=== PATIENT | male | born 1970 | race Caucasian/White ===

== ENCOUNTER 2020-06-09 11:53 | Observation (INO) | payer BC ==
[2020-06-09] MEDS ORDERED: METOCLOPRAMIDE 5 MG/ML 2 ML VIAL IVP STA (12:30)
[2020-06-09] MEDS ORDERED: SODIUM CHLORIDE 0.9% 500 ML 500 ML IV ONE (12:30)
[2020-06-09] MEDS ORDERED: MORPHINE SULFATE 4 MG/ML SYRINGE IVP STA (12:30)
--- NOTE | 2020-06-09 12:47 | ED ---
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 Patient has chief complaint of chest pain as well as headache. The symptoms have been ongoing for the past 3 weeks. He states he is also had nausea without significant vomiting. No known history of coronary artery disease. He has a history of hypertension which is currently being managed by cardiology. Denies fever or chills. Denies abdominal pain. Denies limb numbn ess or weakness. - Related Data Allergies Allergy/AdvReac Type Severity Reaction Status Date / Time hydromorphone [From Dilaudid] Allergy urinary Verified 06/09/20 12:03 retention Review of Systems ROS Statement: Those systems with pertinent positive or pertinent negative responses have been documented in the HPI. ROS Other: All systems not noted in ROS Statement are negative. Past Medical History Past Medical History: Diabetes Mellitus, Hyperlipidemia, Hypertension History of Any Multi-Drug Resistant Organisms: None Reported Past Surgical History: Cholecystectomy, Orthopedic Surgery Additional Past Surgical History / Comment(s): gigi shoulder, neck c345, rt hip and knee surgery Past Psychological History: No Psychological Hx Reported Smoking Status: Current every day smoker Past Alcohol Use History: None Reported Past Drug Use History: None Reported General Exam Limitations: no limitations General appearance: alert, in no apparent distress Head exam: Present: atraumatic, normocephalic Eye exam: Present: normal appearance, PERRL ENT exam: Present: normal exam Neck exam: Present: normal inspection. Absent: tenderness, meningismus Respiratory exam: Present: normal lung sounds bilaterally. Absent: respiratory distress, wheezes Cardiovascular Exam: Present: regular rate, normal rhythm GI/Abdominal exam: Present: soft. Absent: distended, tenderness, guarding Extremities exam: Present: normal inspection, normal capillary refill. Absent: pedal edema, calf tenderness Neurological exam: Present: alert, oriented X3, CN II-XII intact. Absent: motor sensory deficit Psychiatric exam: Present: normal affect, normal mood Skin exam: Present: warm, dry, intact. Absent: cyanosis, diaphoretic Course Vital Signs 06/09/20 06/09/2006/09/20 12:00 12:10 12:20 Temperature 99.1 F Pulse Rate 94 89 Pulse Rate [ Ladle Liner ] Respiratory 20 20 Rate Blood Pressure 151/83 133/94 O2 Sat by Pulse 98 96 95 Oximetry 06/09/20 06/09/20 06/09/20 12:27 12:30 13:00 Temperature Pulse Rate 82 Pulse Rate [ 89 Ladle Liner ] Respiratory 18 Rate Blood Pressure 133/94 133/94 O2 Sat by Pulse 96 Oximetry 06/09/20 06/09/20 13:30 14:00 Temperature Pulse Rate 80 80 Pulse Rate [ Ladle Liner ] Respiratory 15 20 Rate Blood Pressure 125/84 139/89 O2 Sat by Pulse 97 96 Oximetry EKG Findings - EKG Comments: EKG Findings:: EKG: Normal sinus rhythm, nonspecific T-wave abnormality, no ST segment elevation, T-wave inversion in the lateral precordial leads, rate of 88, IA interval 140, QRS duration 86, QTC 438 Medical Decision Making - Medical Decision Making 50-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 No known history of coronary artery disease. EKG sinus rhythm without ST segment elevation. Chest x-ray is negative for acute cardiopulmonary disease. Patient has mild leukocytosis, he has electrolyte abnormality of hypomania 5. His initial troponin is negative. I did perform head CT as the patient has been having ongoing headache for the past 3 weeks as well. This is negative for intracranial hemorrhage or mass effect. Patient reevaluated, symptoms have improved. He will be kept in observation for serial cardiac enzymes, telemetry, cardiology consultation. Case is discussed with Dr. Sierra who will admit. - Lab Data Result diagrams: 06/09/20 12:20 06/09/20 12:20 Lab Results 06/09/20 06/09/20 06/09/20 Range/Units 12:20 12: 12:20 WBC 10.7 H (3.8-10.6) k/uL RBC 4.71 (4.30-5.90) m/uL Hgb 14.0 (13.0-17.5) gm/dL Hct 41.5 (39.0-53.0) % MCV 88.3 (80.0-100.0) fL MCH 29.7 (25.0-35.0) pg MCHC 33.7 (31.0-37.0) g/dL RDW 13.6 (11.5-15.5) % Plt Count 250 (150-450) k/uL Neutrophils % 59 % Lymphocytes % 31 % Monocytes % 6 % Eosinophils % 2 % Basophils % 1 % Neutrophils # 6.3 (1.3-7.7) k/uL Lymphocytes # 3.3 (1.0-4.8) k/uL Monocytes # 0.7 (0-1.0) k/uL Eosinophils # 0.2 (0-0.7) k/uL Basophils # 0.1 (0-0.2) k/uL PT 9.7 (9.0-12.0) sec INR 0.9 (<1.2) APTT 25.1 (22.0-30.0) sec Sodium 136 L (137-145) mmol/L Potassium 4.3 (3.5-5.1) mmol/L Chloride 104 (98-107) mmol/L Carbon Dioxide 21 L (22-30) mmol/L Anion Gap 11 mmol/L BUN 8 L (9-20) mg/dL Creatinine 0.80 (0.66-1.25) mg/dL Est GFR (CKD-EPI)AfAm >90 (>60 ml/min/1.73 sqM) Est GFR (CKD-EPI)NonAf >90 (>60 ml/min/1.73 sqM) Glucose 168 H (74-99) mg/dL Calcium 9.2 (8.4-10.2) mg/dL Magnesium 1.5 L (1.6-2.3) mg/dL Total Bilirubin 0.8 (0.2-1.3) mg/dL AST 21 (17-59) U/L ALT 21 (4-49) U/L Alkaline Phosphatase 64 (38-126) U/L Troponin I (0.000-0.034) ng/mL Total Protein 6.4 (6.3-8.2) g/dL Albumin 4.1 (3.5-5.0) g/dL Lipase 119 (23-300) U/L 06/09/20 Range/Units 12:20 WBC (3.8-10.6) k/uL RBC (4.30-5.90) m/uL Hgb (13.0-17.5) gm/dL Hct (39.0-53.0) % MCV (80.0-100.0) fL MCH (25.0-35.0) pg MCHC (31.0-37.0) g/dL RDW (11.5-15.5) % Plt Count (150-450) k/uL Neutrophils % % Lymphocytes % % Monocytes % % Eosinophils % % Basophils % % Neutrophils # (1.3-7.7) k/uL Lymphocytes # (1.0-4.8) k/uL Monocytes # (0-1.0) k/uL Eosinophils # (0-0.7) k/uL Basophils # (0-0.2) k/uL PT (9.0-12.0) sec INR (<1.2) APTT (22.0-30.0) sec Sodium (137-145) mmol/L Potassium (3.5-5.1) mmol/L Chloride (98-107) mmol/L Carbon Dioxide (22-30) mmol/L Anion Gap mmol/L BUN (9-20) mg/dL Creatinine (0.66-1.25) mg/dL Est GFR (CKD-EPI)AfAm (>60 ml/min/1.73 sqM) Est GFR (CKD-EPI)NonAf (>60 ml/min/1.73 sqM) Glucose (74-99) mg/dL Calcium (8.4-10.2) mg/dL Magnesium (1.6-2.3) mg/dL Total Bilirubin (0.2-1.3) mg/dL AST (17-59) U/L ALT (4-49) U/L Alkaline Phosphatase (38-126) U/L Troponin I <0.012 (0.000-0.034) ng/mL Total Protein (6.3-8.2) g/dL Albumin (3.5-5.0) g/dL Lipase (23-300) U/L Disposition Clinical Impression: Chest pain Disposition: ADMITTED IP TO THIS HOSP Condition: Stable Is patient prescribed a controlled substance at d/c from ED?: No Referrals: Catherine Guevara MD [Primary Care Provider] - 1-2 days Decision to Admit Reason: Admit from EC Decision Date: 06/09/20 Decision Time: 14:08
--- NOTE | 2020-06-09 12:49 | XR ---
EXAMINATION TYPE: XR chest 2V DATE OF EXAM: 06/09/2020 COMPARISON: NONE TECHNIQUE: PA and lateral views submitted. HISTORY: Chest pain FINDINGS: The lungs are clear and there is no pneumothorax, pleural effusion, or focal pneumonia. Degenerativ e changes of the spine. There is postsurgical change overlying the cervical spine with biapical pleur al thickening. No overt failure. Heart size normal. IMPRESSION: 1. No acute process.
[2020-06-09 12:54] LABS: Basophils # (A) 0.1 k/uL (0-0.2); Basophils % (A) 1 %; Eosinophils # (A) 0.2 k/uL (0-0.7); Eosinophils % (A) 2 %; HCT 41.5 % (39.0-53.0); Lymphocytes # (A) 3.3 k/uL (1.0-4.8); Lymphocytes % (A) 31 %; MCH 29.7 pg (25.0-35.0); MCHC 33.7 g/dL (31.0-37.0); MCV 88.3 fL (80.0-100.0); Monocytes # (A) 0.7 k/uL (0-1.0); Monocytes % (A) 6 %; Neutrophils # (A) 6.3 k/uL (1.3-7.7); Neutrophils % (A) 59 %; Platelet Count 250 k/uL (150-450); RBC 4.71 m/uL (4.30-5.90); RDW 13.6 % (11.5-15.5); WBC 10.7 k/uL (3.8-10.6)
[2020-06-09 13:07] LABS: ALT 21 U/L (4-49); AST 21 U/L (17-59); African American GFR (CKD) >90 (>60 ml/min/1.73 sqM); Albumin 4.1 g/dL (3.5-5.0); Alkaline Phosphatase 64 U/L (38-126); Anion Gap 11 mmol/L; Blood Urea Nitrogen 8 mg/dL (9-20); Calcium 9.2 mg/dL (8.4-10.2); Carbon Dioxide 21 mmol/L (22-30); Chloride 104 mmol/L (98-107); Glucose 168 mg/dL (74-99); Lipase 119 U/L (23-300); Magnesium 1.5 mg/dL (1.6-2.3); Non-African American GFR(CKD) >90 (>60 ml/min/1.73 sqM); Potassium 4.3 mmol/L (3.5-5.1); Sodium 136 mmol/L (137-145); Total Bilirubin 0.8 mg/dL (0.2-1.3); Total Protein 6.4 g/dL (6.3-8.2)
[2020-06-09 13:15] LABS: INR 0.9 (<1.2); Partial Thromboplastin Time 25.1 sec (22.0-30.0); Prothrombin Time 9.7 sec (9.0-12.0)
[2020-06-09] MEDS ORDERED: MAGNESIUM SULFATE-D5W PMX 1 GM in DEXTROSE/WATER 1 100ML.BAG IVPB ONE (13:27)
--- NOTE | 2020-06-09 13:37 | CT ---
EXAMINATION TYPE: CT brain wo con DATE OF EXAM: 06/09/2020 HISTORY: DE LA GARZA X3 WEEKS. Weakness. CT DLP: 1139.4 mGycm. Automated Exposure Control for Dose Reduction was Utilized. TECHNIQUE: CT scan of the head is performed without contrast. COMPARISON: None. FINDINGS: There is no acute intracranial hemorrhage or midline shift identified. Ventricles and sul ci within normal limits in size. Sullivan-white matter differentiation fairly well maintained. The globe s are intact and the visualized sinuses are clear. IMPRESSION: No acute intracranial hemorrhage or midline shift.
[2020-06-09] MEDS ORDERED: NALOXONE 0.4 MG/ML 1 ML VIAL IV PRN (14:05)
[2020-06-09] MEDS ORDERED: ONDANSETRON 4 MG/2 ML VIAL IVP PRN (14:05)
[2020-06-09] MEDS ORDERED: ACETAMINOPHEN TAB 325 MG TAB PO PRN (14:05)
[2020-06-09] MEDS ORDERED: ASPIRIN 325 MG TAB PO STA (14:05)
[2020-06-09] MEDS ORDERED: SODIUM CHLORIDE 0.9% 1,000 ML IV SCH (14:15)
[2020-06-09] MEDS: MORPHINE SULFATE 4 MG/ML SYRINGE IVP PRN ×2 (18:43→23:06)
[2020-06-09] MEDS ORDERED: AMITRIPTYLINE HCL 25 MG TAB PO SCH (21:00)
[2020-06-09] MEDS: HEPARIN SODIUM,PORCINE 5,000 UNIT/ML 1 ML VIAL SQ SCH (23:07)
[2020-06-09] MEDS ORDERED: IPRATROPIUM-ALBUTEROL 3 ML NEB INHALATION PRN (23:50)
--- NOTE | 2020-06-09 23:55 | P.HPIM ---
History of Present Illness H&P Date: 06/09/20 Chief Complaint: Chest Pain Patient is a 50-year-old male with a known history of hypertension, hyperlipidemia, diabetes type 2 hem-[id number]-enuxummgg and previous history of C 3-C4-C5 cervical fusion surgery and currently everyday smoker came to ER with the complaints of chest pain mainly mid retrosternal radiating to the back and associate with nausea and sweating. Patient states that he has been having headache and chest pains on and off for the past 3 weeks. Patient is being followed with Dr. Basilio in the clinic due to uncontrolled hypertension. 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 2D echocardiogram was ordered. Patient is scheduled for further work-up. Due to worsening pain patient presented to ER. Patient also states that he has been having chest pain with deep breathing sometimes. No fever. Patient felt like Frizzi last night. No cough or sputum production. No abdominal pain. No diarrhea. No dizziness or lightheadedness. No orthopnea no PND. Otherwise patient does smoke 1 pack/day daily and daily basis. Chest x-ray showed no acute cardiopulmonary process CT head is showed no acute intracranial process EKG showed normal sinus rhythm with T wave inversions in the lateral leads. Laboratory data showed WBC 10.7, MARIAM globin 14.0 and platelets 250 Sodium 136, BUN 11 and creatinine 0.8 Magnesium 1.5 Troponin x1- Review of Systems Constitutional: Patient denies any fever or chills . No generalized weakness or weight loss. Abdomen: Patient denied nausea vomiting and diarrhea and abdominal pain. Cardiovascular: Patient does have chest pain with minimal shortness of breath. No palpitations. No leg swelling. . Respiratory: patient denied any cough is from production. No shortness of breath Neurologic: Patient denied any numbness or tingling headache. Musculoskeletal: Patient denies any complaints of joint swelling or deformity. Skin: Negative Psychiatric: Negative Endocrine: No heat or cold intolerance. No recent weight gain. Genitourinary: No dysuria or hematuria. All other 14 point ROS negative except the above Past Medical History Past Medical History: Diabetes Mellitus, Hyperlipidemia, Hypertension History of Any Multi-Drug Resistant Organisms: None Reported Past Surgical History: Cholecystectomy, Orthopedic Surgery Additional Past Surgical History / Comment(s): gigi shoulder, neck c345, rt hip and knee surgery Past Psychological History: No Psychological Hx Reported Smoking Status: Current every day smoker Past Alcohol Use History: None Reported Past Drug Use History: None Reported Medications and Allergies Home Medications Medication Instructions Recorded Confirmed Type Amitriptyline HCl 25 mg PO HS 06/09/20 06/09/20 History Aspirin EC [Ecotrin Low Dose] 81 mg PO DAILY 06/09/20 06/09/20 History DULoxetine HCL [Cymbalta] 60 mg PO DAILY 06/09/20 06/09/20 History Isosorbide Mononitrate ER [Imdur] 30 mg PO DAILY 06/09/20 06/09/20 History Metoprolol Tartrate 25 mg PO DAILY 06/09/20 06/09/20 History Omeprazole 40 mg PO DAILY 06/09/20 06/09/20 History Sildenafil Citrate 50 mg PO DAILY PRN 06/09/20 06/09/20 History amLODIPine [Norvasc] 10 mg PO DAILY 06/09/20 06/09/20 History lisinopriL 20 mg PO DAILY 06/09/20 06/09/20 History metFORMIN HCL 500 mg PO DAILY 06/09/20 06/09/20 History Allergies Allergy/AdvReac Type Severity Reaction Status Date / Time hydromorphone [From Dilaudid] Allergy urinary Verified 06/09/20 15:30 retention Physical Exam Vitals: Vital Signs Temp Pulse Pulse Resp BP Pulse Ox 06/09/20 17:40 98.1 F 06/09/20 17:30 91 18 131/86 98 06/09/20 17:00 82 19 137/92 97 06/09/20 16:30 84 20 139/94 96 06/09/20 16:00 84 20 129/99 95 06/09/20 15:30 81 17 136/97 96 06/09/20 15:00 86 20 128/95 95 06/09/20 14:30 81 21 134/90 97 06/09/20 14:00 80 20 139/89 96 06/09/20 13:30 80 15 125/84 97 06/09/20 13:00 82 18 133/94 96 06/09/20 12:30 133/94 06/09/20 12:27 89 06/09/20 12:20 89 20 133/94 95 06/09/20 12:10 96 06/09/20 12:00 99.1 F 94 20 151/83 98 Intake and Output 06/09/20 06/09/20 06/09/20 06:59 14:59 22:59 Other: Weight 86.183 kg PHYSICAL EXAMINATION: Patient is lying in the bed comfortably, no acute distress, awake alert and oriented.. HEENT: Normocephalic. Neck is supple. Pupils reactive. Nostrils clear. Oral cavity is moist. Ears reveal no drainage. Neck reveals no JVD, carotid bruits, or thyromegaly. CHEST EXAMINATION: Trachea is central. Symmetrical expansion.Mild expiratory wheeze. Lung sweeney clear to auscultation and percussion. CARDIAC: Normal S1, S2 with no gallops. No murmurs ABDOMEN: Soft. Bowel sounds normal. No organomegaly. No abdominal bruits. Extremities: reveal no edema. No clubbing or cyanosis Neurologically awake, alert, oriented x3 with well-coordinated movements. No focal deficits noted Skin: No rash or skin lesions. Psychiatric: Coperative. Nonsuicidal Musculoskeletal: No joint swelling or deformity. Normal range of motion. Results CBC & Chem 7: 06/09/20 12:20 06/09/20 12:20 Labs: Abnormal Lab Results - Last 24 Hours (Table) 06/09/20 06/09/20 Range/Units 12:20 12:20 WBC 10.7 H (3.8-10.6) k/uL Sodium 136 L (137-145) mmol/L Carbon Dioxide 21 L (22-30) mmol/L BUN 8 L (9-20) mg/dL Glucose 168 H (74-99) mg/dL Magnesium 1.5 L (1.6-2.3) mg/dL Thrombosis Risk Factor Assmnt - DVT/VTE Prophylaxis DVT/VTE Prophylaxis: Pharmacologic Prophylaxis ordered Assessment and Plan Assessment: Chest pain rule out ACS. Uncontrolled hypertension Hypomagnesemia replaced Hypertension Hyperlipidemia Diabetes type 2 [id number] DVT prophylaxis Heparin subcu Plan: Patient be continued on telemetry monitoring. Serial EKG and troponin x3. Cardiology was consulted. Will check d-dimer level. Continue to monitor closely. Smoking cessation has been counseled extensively. Time with Patient: Greater than 30
[2020-06-10 08:24] VITALS: RESP 18; TEMP 98.1
[2020-06-10] MEDS: HEPARIN SODIUM,PORCINE 5,000 UNIT/ML 1 ML VIAL SQ SCH ×2 (08:43→17:26)
[2020-06-10] MEDS ORDERED: amLODIPine 10 MG TAB PO SCH (09:00)
[2020-06-10] MEDS ORDERED: METOPROLOL TARTRATE 25 MG TAB PO SCH (09:00)
[2020-06-10] MEDS ORDERED: ISOSORBIDE MONONITRATE ER 30 MG TAB.ER.24H PO SCH (09:00)
[2020-06-10] MEDS ORDERED: lisinopriL 20 MG TAB PO SCH ×2 (09:00)
[2020-06-10] MEDS ORDERED: ASPIRIN 81 MG PO SCH (09:00)
[2020-06-10] MEDS ORDERED: hydroCHLOROthiazide 25 MG TAB PO SCH (09:00)
[2020-06-10] MEDS ORDERED: ASPIRIN 325 MG TAB PO SCH (09:00)
[2020-06-10] MEDS ORDERED: PANTOPRAZOLE 40 MG TABLET PO SCH (09:00)
--- NOTE | 2020-06-10 13:08 | P.CRDCN ---
History of Present Illness History of present illness: HISTORY OF PRESENTING ILLNESS This is a pleasant 50-year-old male past medical history significant for hypertension, dyslipidemia, diabetes mellitus and chronic nicotine dependence. He follows in the office with Dr. Aguilar. We have been asked to see him in consultation for chest pain. He states for the previous 1-month he has been experiencing chest pain, shortness of breath, dizziness, diarrhea, headache, nausea and vomiting. He also has been monitoring his blood pressure at home and it has been running over 190 systolic. He is seen and examined resting comfortably laying flat in bed in no acute distress. He has recently been to the office on multiple occasions with similar complaints and undergone a stress test as well as an echocardiogram. Both were normal. DIAGNOSTICS EKG reveals sinus mechanism with non-specific abnormalities in the lateral leads, similar to previous EKG in the office. Chest xray negative for an acute cardiopulmonary process. CT brain negative for an acute process. Laboratory reviewed, WBC 10.7, sodium 136, potassium 4.3, creatinine 0.8, m agnesium 1.5, cardiac enzymes negative x3 and d-dimer 0.29. Current cardiac medications include lopressor 25 mg daily, lisinopril 20 mg daily, aspirin 81 mg daily, amlodipine 10 mg daily and imdur 30 mg daily. REVIEW OF SYSTEMS At the time of my exam: CONSTITUTIONAL: Denies fever or chills. CARDIOVASCULAR: Complains of chest pain. Denies shortness of breath, orthopnea, PND or palpitations. RESPIRATORY: Denies cough. GASTROINTESTINAL: Denies abdominal pain, diarrhea, constipation, nausea or vo miting. MUSCULOSKELETAL: Denies myalgias. NEUROLOGIC: Denies numbness, tingling or weakness. ENDOCRINE: Denies fatigue, weight change, polydipsia or polyurina. GENITOURINARY: Denies burning, hematuria or urgency with micturation. HEMATOLOGIC: Denies history of anemia or bleeding. PHYSICAL EXAMINATION Blood pressure 159/103 heart rate 77 afebrile and maintaining oxygen saturation on room air. CONSTITUTIONAL: No apparent distress. HEENT: Head is normocephalic. Pupils are equal, round. Sclerae anicteric. Mucous membranes of the mouth are moist. No JVD. No carotid bruit. CHEST EXAMINATION: Lungs are clear to auscultation. No chest wall tenderness is noted on palpation or with deep breathing. HEART EXAMINATION: Regular rate and rhythm. S1, S2 heard. No murmurs, gallops or rub. ABDOMEN: Soft, nontender. Positive bowel sounds. EXTREMITIES: 2+ peripheral pulses, no lower extremity edema and no calf tenderness. NEUROLOGIC EXAMINATION: Patient is awake, alert and oriented x3. ASSESSMENT Chest pain, an acute coronary event has been ruled out. Recent normal stress test in the office Hypertension, uncontrolled Hypomagnesemia Diabetes mellitus Dyslipidemia Chronic nicotine dependence PLAN An acute coronary event has been ruled out. Increase lisinopril to 40 mg daily and add hydrochlorothiazide 25 mg daiy. Replace magnesium per protocol. Ongoing medical management and evaluation of multiple complaints. Follow up with Dr. Aguilar in the office. Smoking cessation recommended. Thank you kindly for this consultation. Nurse Practitioner note has been reviewed, I agree with a documented findings and plan of care. Patient was seen and examined. Past Medical History Past Medical History: Diabetes Mellitus, Hyperlipidemia, Hypertension History of Any Multi-Drug Resistant Organisms: None Reported Past Surgical History: Cholecystectomy, Orthopedic Surgery Additional Past Surgical History / Comment(s): gigi shoulder, neck c345, rt hip and knee surgery Past Psychological History: No Psychological Hx Reported Smoking Status: Current every day smoker Past Alcohol Use History: None Reported Past Drug Use History: None Reported Medications and Allergies Home Medications Medication Instructions Recorded Confirmed Type Amitriptyline HCl 25 mg PO HS 06/09/20 06/09/20 History Aspirin EC [Ecotrin Low Dose] 81 mg PO DAILY 06/09/20 06/09/20 History DULoxetine HCL [Cymbalta] 60 mg PO DAILY 06/09/20 06/09/20 History Isosorbide Mononitrate ER [Imdur] 30 mg PO DAILY 06/09/20 06/09/20 History Metoprolol Tartrate 25 mg PO DAILY 06/09/20 06/09/20 History Omeprazole 40 mg PO DAILY 06/09/20 06/09/20 History Sildenafil Citrate 50 mg PO DAILY PRN 06/09/20 06/09/20 History amLODIPine [Norvasc] 10 mg PO DAILY 06/09/20 06/09/20 History metFORMIN HCL 500 mg PO DAILY 06/09/20 06/09/20 History hydroCHLOROthiazide [Hydrodiuril] 25 mg PO DAILY #30 tab 06/10/20 Rx lisinopriL [Zestril] 40 mg PO DAILY #30 tab 06/10/20 Rx Allergies Allergy/AdvReac Type Severity Reaction Status Date / Time hydromorphone [From Dilaudid] Allergy urinary Verified 06/09/20 15:30 retention Physical Exam Vitals: Vital Signs Temp Pulse Pulse Pulse Resp BP BP 06/10/20 03:00 98.0 F 83 81 19 159/97 06/09/20 20:30 98.0 F 85 83 20 138/81 06/09/20 18:29 98.5 F 84 18 131/81 06/09/20 17:40 98.1 F 06/09/20 17:30 91 18 131/86 06/09/20 17:00 82 19 137/92 06/09/20 16:30 84 20 139/94 06/09/20 16:00 84 20 129/99 06/09/20 15:30 81 17 136/97 06/09/20 15:00 86 20 128/95 06/09/20 14:30 81 21 134/90 06/09/20 14:00 80 20 139/89 06/09/20 13:30 80 15 125/84 06/09/20 13:00 82 18 133/94 06/09/20 12:30 133/94 06/09/20 12:27 89 06/09/20 12:20 89 20 133/94 06/09/20 12:10 06/09/20 12:00 99.1 F 94 20 151/83 Pulse Ox 06/10/20 03:00 95 06/09/20 20:30 94 L 06/09/20 18:29 94 L 06/09/20 17:40 06/09/20 17:30 98 06/09/20 17:00 97 06/09/20 16:30 96 06/09/20 16:00 95 06/09/20 15:30 96 06/09/20 15:00 95 06/09/20 14:30 97 06/09/20 14:00 96 06/09/20 13:30 97 06/09/20 13:00 96 06/09/20 12:30 06/09/20 12:27 06/09/20 12:20 95 06/09/20 12:10 96 06/09/20 12:00 98 Intake and Output 06/09/20 06/10/2020 22:59 06:59 14:59 Intake Total 540 540 Balance 540 540 Intake: Oral 540 540 Other: Voiding Method Toilet Toilet # Voids 2 Weight 86.183 kg Results 06/09/20 12:20 06/09/20 12:20 Cardiac Enzymes 06/09/20 06/09/20 06/09/20 Range/Units 12:20 12:20 15:14 AST 21 (17-59) U/L Troponin I <0.012 <0.012 (0.000-0.034) ng/mL 06/09/20 Range/Units 18:36 AST (17-59) U/L Troponin I <0.012 (0.000-0.034) ng/mL Coagulation 06/09/20 Range/Units 12:20 PT 9.7 (9.0-12.0) sec APTT 25.1 (22.0-30.0) sec CBC 06/09/20 Range/Units 12:20 WBC 10.7 H (3.8-10.6) k/uL RBC 4.71 (4.30-5.90) m/uL Hgb 14.0 (13.0-17.5) gm/dL Hct 41.5 (39.0-53.0) % Plt Count 250 (150-450) k/uL Comprehensive Metabolic Panel 06/09/20 Range/Units 12:20 Sodium 136 L (137-145) mmol/L Potassium 4.3 (3.5-5.1) mmol/L Chloride 104 (98-107) mmol/L Carbon Dioxide 21 L (22-30) mmol/L BUN 8 L (9-20) mg/dL Creatinine 0.80 (0.66-1.25) mg/dL Glucose 168 H (74-99) mg/dL Calcium 9.2 (8.4-10.2) mg/dL AST 21 (17-59) U/L ALT 21 (4-49) U/L Alkaline Phosphatase 64 (38-126) U/L Total Protein 6.4 (6.3-8.2) g/dL Albumin 4.1 (3.5-5.0) g/dL Current Medications Generic Name Dose Route Start Last Admin Trade Name Freq PRN Reason Stop Dose Admin Acetaminophen 650 mg 06/09/20 14:05 Tylenol Tab PO Q6HR PRN Mild Pain or Fever > 100.5 Albuterol/Ipratropium 3 ml 06/09/20 23:50 Duoneb 0.5 Mg-3 Mg/3 Ml Soln INHALATION RT-QID PRN Shortness Of Breath Or Wheezing Amitriptyline HCl 25 mg 06/09/20 21:00 06/09/20 20:16 Elavil PO 25 mg HS SHIRIN Administration Amlodipine Besylate 10 mg 06/10/20 09:00 Norvasc PO DAILY [facility] Aspirin 325 mg 06/10/20 09:00 Aspirin PO DAILY [facility] Heparin Sodium (Porcine) 5,000 unit 06/10/20 00:00 06/09/20 23:07 Heparin SQ 5,000 unit Q8HR SHIRIN Administration Isosorbide Mononitrate 30 mg 06/10/20 09:00 Imdur PO DAILY [facility] Lisinopril 20 mg 06/10/20 09:00 Zestril PO DAILY [facility] Metoprolol Tartrate 25 mg 06/10/20 09:00 Lopressor PO DAILY [facility] Morphine Sulfate 4 mg 06/09/20 14:07 06/09/20 23:06 Morphine Sulfate (Inj) IVP 4 mg Q4HR PRN Administration Pain Naloxone HCl 0.2 mg 06/09/20 14:05 Narcan IV Q2M PRN Opioid Reversal Ondansetron HCl 4 mg 06/09/20 14:05 Zofran IVP Q8HR PRN Nausea And Vomiting Pantoprazole Sodium 40 mg 06/10/20 09:00 Protonix PO DAILY [facility] Intake and Output 06/09/20 06/10/20 06/10/20 22:59 06:59 14:59 Intake Total 540 540 Balance 540 540 Intake: Oral 540 540 Other: Voiding Method Toilet Toilet # Voids 2 Weight 86.183 kg 06/09/20 12:20 06/09/20 12:20
[2020-06-10 14:28] VITALS: BP 143/82; PULSE 76
--- NOTE | 2020-06-24 22:00 | P.DS ---
Providers Date of admission: 06/09/20 14:05 Expected date of discharge: 06/10/20 Attending physician: Alexsandra Sierra Consults: 06/09/20 14:05 Consult Physician Routine Consulting Provider: David Aguilar Consult Reason/Comments: CP Do you want consulting provider notified?: Yes Primary care physician: Catherine Guevara Hospital Course: Discharge diagnosis Chest pain ruled out ACS. Uncontrolled hypertension Hypomagnesemia replaced Hypertension Hyperlipidemia Diabetes type 2 okt-zfkxuwa-frbbbyhts DVT prophylaxis Heparin subcu Hospital course Patient is a 50-year-old male with a known history of hypertension, hyperlipidemia, diabetes type 2 qsa-vzewfzc-tncyutgni and previous history of C3-C4-C5 cervical fusion surgery and currently everyday smoker came to ER with the complaints of chest pain mainly mid retrosternal radiating to the back and associate with nausea and sweating. Patient states that he has been having headache and chest pains on and off for the past 3 weeks. Patient is being followed with Dr. Basilio in the clinic due to uncontrolled hypertension. 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 2D echocardiogram was ordered. Patient is scheduled for further work-up. Due to worsening pain patient presented to ER. Patient also states that he has been having chest pain with deep breathing sometimes. No fever. Patient felt like Fri[place] last night. No cough or sputum production. No abdominal pain. No diarrhea. No dizziness or lightheadedness. No orthopnea no PND. Otherwise patient does smoke 1 pack/day daily and daily basis. Chest x-ray showed no acute cardiopulmonary process CT head is showed no acute intracranial process EKG showed normal sinus rhythm with T wave inversions in the lateral leads. Laboratory data showed WBC 10.7, Hemoglobin 14.0 and platelets 250 Sodium 136, BUN 11 and creatinine 0.8 Magnesium 1.5 Patient was continued on telemetry monitoring. Serial EKG and troponin x3. Cardiology has seen the pt.. d-dimer level not elevated . Increase lisinopril to 40 mg daily and added hydrochlorothiazide for better blood pressure control. Patient had recent stress test done at management engineer office was negative. Patient was recommended to follow-up with Dr. Basilio in the office. Patient is being discharged home today. Denied any complaints of chest pain or shortness of breath.. Smoking cessation has been counseled extensively. PHYSICAL EXAMINATION: Patient is lying in the bed comfortably, no acute distress, awake alert and oriented.. HEENT: Normocephalic. Neck is supple. Pupils reactive. Nostrils clear. Oral cavity is moist. Ears reveal no drainage. Neck reveals no JVD, carotid bruits, or thyromegaly. CHEST EXAMINATION: Trachea is central. Symmetrical expansion.Mild expiratory wheeze. Lung sweeney clear to auscultation and percussion. CARDIAC: Normal S1, S2 with no gallops. No murmurs ABDOMEN: Soft. Bowel sounds normal. No organomegaly. No abdominal bruits. Extremities: reveal no edema. No clubbing or cyanosis Neurologically awake, alert, oriented x3 with well-coordinated movements. No focal deficits noted Skin: No rash or skin lesions. Psychiatric: Coperative. Nonsuicidal Musculoskeletal: No joint swelling or deformity. Normal range of motion. Vital Signs Temp Pulse Pulse Pulse Resp BP BP 06/10/20 03:00 98.0 F 83 81 19 159/97 06/09/20 20:30 98.0 F 85 83 20 138/81 06/09/20 18:29 98.5 F 84 18 131/81 06/09/20 17:40 98.1 F 06/09/20 17:30 91 18 131/86 06/09/20 17:00 82 19 137/92 06/09/20 16:30 84 20 139/94 06/09/20 16:00 84 20 129/99 06/09/20 15:30 81 17 136/97 06/09/20 15:00 86 20 128/95 06/09/20 14:30 81 21 134/90 06/09/20 14:00 80 20 139/89 06/09/20 13:30 80 15 125/84 06/09/20 13:00 82 18 133/94 06/09/20 12:30 133/94 06/09/20 12:27 89 06/09/20 12:20 89 20 133/94 06/09/20 12:10 06/09/20 12:00 99.1 F 94 20 151/83 Pulse Ox 06/10/20 03:00 95 06/09/20 20:30 94 L 06/09/20 18:29 94 L 06/09/20 17:40 06/09/20 17:30 98 06/09/20 17:00 97 08/10/20 16:30 96 06/09/20 16:00 95 06/09/20 15:30 96 06/09/20 15:00 95 06/09/20 14:30 97 06/09/20 14:00 96 06/09/20 13:30 97 06/09/20 13:00 96 06/09/20 12:30 06/09/20 12:27 06/09/20 12:20 95 06/09/20 12:10 96 06/09/20 12:00 98 Patient Condition at Discharge: Stable Plan - Discharge Summary Discharge Rx Participant: No New Discharge Prescriptions: New hydroCHLOROthiazide [Hydrodiuril] 25 mg PO DAILY #30 tab lisinopriL [Zestril] 40 mg PO DAILY #30 tab Continue Metoprolol Tartrate 25 mg PO DAILY Isosorbide Mononitrate ER [Imdur] 30 mg PO DAILY Omeprazole 40 mg PO DAILY DULoxetine HCL [Cymbalta] 60 mg PO DAILY metFORMIN HCL 500 mg PO DAILY amLODIPine [Norvasc] 10 mg PO DAILY Aspirin EC [Ecotrin Low Dose] 81 mg PO DAILY Amitriptyline HCl 25 mg PO HS Sildenafil Citrate 50 mg PO DAILY PRN PRN Reason: ED Discontinued lisinopriL 20 mg PO DAILY Discharge Medication List Amitriptyline HCl 25 mg PO HS 06/09/20 [History] Aspirin EC [Ecotrin Low Dose] 81 mg PO DAILY 06/09/20 [History] DULoxetine HCL [Cymbalta] 60 mg PO DAILY 06/09/20 [History] Isosorbide Mononitrate ER [Imdur] 30 mg PO DAILY 06/09/20 [History] Metoprolol Tartrate 25 mg PO DAILY 06/09/20 [History] Omeprazole 40 mg PO DAILY 06/09/20 [History] Sildenafil Citrate 50 mg PO DAILY PRN 06/09/20 [History] amLODIPine [Norvasc] 10 mg PO DAILY 06/09/20 [History] metFORMIN HCL 500 mg PO DAILY 06/09/20 [History] hydroCHLOROthiazide [Hydrodiuril] 25 mg PO DAILY #30 tab 06/10/20 [Rx] lisinopriL [Zestril] 40 mg PO DAILY #30 tab 06/10/20 [Rx] Follow up Appointment(s)/Referral(s): Catherine Guevara MD [Primary Care Provider] - 06/18/20 9:45 am David Aguilar MD [STAFF PHYSICIAN] - 06/23/20 4:30 pm Patient Instructions/Handouts: Chest Pain (GEN), Hypertension (GEN) Discharge Disposition: HOME SELF-CARE
== END 2020-06-10 17:30 | disposition home or self-care (01) ==
LOC: EC 11:53 → 3NCARDOBS 14:05
PROVIDERS: ADMIT Internal Medicine; ATTEND Internal Medicine
DX: R07.9 Chest pain, unspecified (principal); R06.02 Shortness of breath; R42 Dizziness and giddiness; E83.42 Hypomagnesemia; E11.9 Type 2 diabetes mellitus without complications; I10 Essential (primary) hypertension; E78.5 Hyperlipidemia, unspecified; R51 Headache; R19.7 Diarrhea, unspecified; R11.2 Nausea with vomiting, unspecified; F17.210 Nicotine dependence, cigarettes, uncomplicated; Z90.49 Acquired absence of other specified parts of digestive tract; Z98.890 Other specified postprocedural states; Z79.84 Long term (current) use of oral hypoglycemic drugs; Z79.82 Long term (current) use of aspirin; Z79.899 Other long term (current) drug therapy; Z88.5 Allergy status to narcotic agent; Z98.1 Arthrodesis status
CPT/HCPCS: 96372 ×2; 96376; 96361; 96365; 96375; 99285; 36415; 94640; 93005; 85379; 80053; 83690; 83735; 84484; 85025; 85610; 85730; 71046; 70450; G0378 ×2; J2270; J1644 ×2; J2765; J3475